=== PATIENT | female | born 1970 | race Caucasian/White ===

== ENCOUNTER → 2019-12-13 15:22 | Outpatient (CLI) | payer OTHER, SELFPAY ==
--- NOTE | ~2019-12-13 | MM_ITS ---
EXAMINATION: MM screening sweetie BI w jacinta HISTORY: Screening mammogram TECHNIQUE: Craniocaudal and mediolateral oblique 3-D tomosynthesis images were obtained and synthetic 2-D images were generated. CAD analysis was submitted and interpreted. COMPARISON: 11/22/2017, 11/16/2016, 11/11/2015 bilateral digital screening mammogram examinations BREAST PARENCHYMAL COMPOSITION: There are scattered areas of fibroglandular density. FINDINGS: There is no evidence of suspicious mass, calcification, or architectural distortion to sugg est malignancy in either breast. There has been no suspicious interval change. IMPRESSION: 1. No mammographic evidence of malignancy. 2. Recommend routine screening mammography in one year. BI-RADS Category 1: Negative Reviewed, dictated and finalized at location A.
== END ==
PROVIDERS: Visit Provider Nurse Practitioner
DX: Z12.31 Encounter for screening mammogram for malignant neoplasm of breast (principal)
CPT/HCPCS: 77063; 77067

== ENCOUNTER → 2020-06-24 14:44 | Outpatient (REF) | payer OTHER, SELFPAY | LOC: ANHLAB 14:44 | PROVIDERS: Visit Provider Surgery Plastic and Reconstructive Surgery | DX: C43.9 Malignant melanoma of skin, unspecified (principal) | CPT/HCPCS: 88305; 88342 ==

== ENCOUNTER → 2021-01-08 15:47 | Outpatient (CLI) | payer BC, SELFPAY ==
--- NOTE | ~2021-01-08 | MM_ITS ---
EXAMINATION: MM screening sweetie BI w jacinta HISTORY: Screening TECHNIQUE: Craniocaudal and mediolateral oblique 3-D tomosynthesis images were obtained and synthetic 2-D images were generated. CAD analysis was submitted and interpreted. COMPARISON: No prior mammogram is available for comparison at this institution. BREAST PARENCHYMAL COMPOSITION: There are scattered areas of fibroglandular density. FINDINGS: There is no evidence of suspicious mass, calcification, or architectural distortion to sugg est malignancy in either breast. There has been no suspicious interval change. IMPRESSION: 1. No mammographic evidence of malignancy. 2. Recommend routine screening mammography in one year. BI-RADS Category 1: Negative Reviewed, dictated and finalized at location A.
== END ==
PROVIDERS: PCP Family Medicine; Visit Provider Nurse Practitioner
DX: Z12.31 Encounter for screening mammogram for malignant neoplasm of breast (principal)
CPT/HCPCS: 77063; 77067

== ENCOUNTER → 2022-02-27 15:07 | Outpatient (CLI) | payer OTHER, BC, SELFPAY ==
--- NOTE | ~2022-02-27 | MM_ITS ---
EXAMINATION: MM screening sweetie BI w jacinta HISTORY: Screening TECHNIQUE: Craniocaudal and mediolateral oblique 3-D tomosynthesis images were obtained and synthetic 2-D images were generated. CAD analysis was submitted and interpreted. COMPARISON: Comparison to multiple prior studies sequentially, with oldest reviewed study dated 11/02. BREAST PARENCHYMAL COMPOSITION: There are scattered areas of fibroglandular density. FINDINGS: There is a focal asymmetry in the periareolar aspect of the right breast slightly lateral t o the nipple on CC view. The left breast is stable without evidence for malignancy. IMPRESSION: 1. Focal right breast asymmetry. 2. Additional mammographic views and possible breast ultrasound are recommended. BI-RADS Category 0: Incomplete: Needs additional imaging evaluation. Reviewed, dictated and finalized at location A. IMPRESSION: 1. Focal right breast asymmetry. 2. Additional mammographic views and possible breast ultrasound are recommended . BI-RADS Category 0: Incomplete: Needs additional imaging evaluation.
== END ==
PROVIDERS: PCP Obstetrics & Gynecology Gynecology; Visit Provider Nurse Practitioner
DX: Z12.31 Encounter for screening mammogram for malignant neoplasm of breast (principal); R92.8 Other abnormal and inconclusive findings on diagnostic imaging of breast
CPT/HCPCS: 77063; 77067

== ENCOUNTER → 2022-03-18 08:10 | Outpatient (CLI) | payer OTHER, SELFPAY ==
--- NOTE | ~2022-03-18 | MMUS_ITS ---
EXAMINATION: MM diagnostic sweetie RT w jacinta, US breast RT complete HISTORY: Focal asymmetry in periareolar aspect of right breast slightly lateral to the nipple on scre ening CC view of 02/2022 TECHNIQUE: Additional 3-D tomosynthesis images of the right breast were performed and synthetic 2-D i mages were generated. CAD analysis was submitted and interpreted. High resolution complete right kat st ultrasound examination including all 4 quadrants and subareolar area was performed. COMPARISON: 02/27/2022 bilateral screening mammogram FINDINGS: MAMMOGRAPHIC FINDINGS: No suspicious mass or architectural distortion, malignant calcification, skin thickening or retractio n is evident. No suspicious finding is noted at the area in question at the lateral periareolar area on these supplemental views. ULTRASOUND: 6:00 2 cm from nipple: Parallel circumscribed 3.8 x 3.2 x 4.4 mm hypoechoic lesion with possible fatt y hilum, with through transmission, without internal vascularity, consistent with benign process 6:00 1 cm from nipple: Parallel circumscribed 4.4 x 9.4 mm hypoechoic solid lesion without internal v ascularity or posterior shadowing; six-month targeted ultrasound follow-up is recommended 6:00 1 cm from nipple: 2.4 x 3.6 mm circumscribed parallel hypoechoic lesion without shadowing 11:00 subareolar area: 3.5 x 4.6 mm septated cyst, benign 12:00 periareolar area: 2 adjacent cysts measuring up to 3.9 and 3 mm. IMPRESSION: 1. Probable benign finding at 6:00 1 cm from nipple 2. Six-month targeted breast ultrasound at 6:00 1 cm from nipple is recommended BI-RADS category 3, probably benign findings. Reviewed, dictated and finalized at location A. L DRAFTSMAN IMPRESSION: 1. Probable benign finding at 6:00 1 cm from nipple 2. Six-month targeted breast ultrasound at 6:00 1 cm from nipple is recommended BI-RADS category 3, probably benign findings.
== END ==
PROVIDERS: Visit Provider Nurse Practitioner
DX: R92.8 Other abnormal and inconclusive findings on diagnostic imaging of breast (principal)
CPT/HCPCS: 76641; 77061; 77065; G0279

== ENCOUNTER → 2022-08-24 14:48 | Outpatient (CLI) | payer OTHER, SELFPAY ==
--- NOTE | ~2022-08-24 | US_ITS ---
EXAMINATION: US breast RT limited HISTORY: Six-month follow-up for probably benign right breast masses TECHNIQUE: Limited right breast ultrasound was performed. FINDINGS: There is a 5 mm cyst at the 6:00 location 1 cm from the nipple. A 9 mm x 4 mm oval, circums cribed, parallel, hypoechoic mass with no posterior features or internal vascularity at the 6:00 loca tion, 1 cm from the nipple is stable. IMPRESSION: Stable, probably benign right breast masses. Follow-up targeted right breast ultrasound six months is recommended. BI-RADS category 3, probably benign findings. Reviewed, dictated and finalized at location A. IMPRESSION: Stable, probably benign right breast masses. Follow-up targeted right breast ul trasound six months is recommended. BI-RADS category 3, probably benign findings.
== END ==
PROVIDERS: PCP Obstetrics & Gynecology Gynecology; Visit Provider Obstetrics & Gynecology Gynecology
DX: R92.8 Other abnormal and inconclusive findings on diagnostic imaging of breast (principal)
CPT/HCPCS: 76642

== ENCOUNTER → 2023-03-03 14:49 | Outpatient (CLI) | payer OTHER, SELFPAY ==
--- NOTE | ~2023-03-03 | MMUS_ITS ---
EXAMINATION: MM diagnostic sweetie BI w jacinta, US breast RT limited HISTORY: Follow-up right breast mass TECHNIQUE: Additional 3-D tomosynthesis images of the right breast were performed and synthetic 2-D i mages were generated. CAD analysis was submitted and interpreted. High resolution Limited right breas t ultrasound was performed. COMPARISON: Comparison to multiple prior studies sequentially, with oldest reviewed study dated 11/16. BREAST PARENCHYMAL COMPOSITION: Breast composed of scattered areas of fibroglandular density FINDINGS: MAMMOGRAPHIC FINDINGS: The breasts are stable. No new masses, calcifications or architectural distortion in either breast to suggest malignancy. ULTRASOUND: Limited right breast ultrasound: At 6:00, 1 cm from the nipple there is a 5 mm cyst. At 6:00, 1 cm fr om the nipple there is an irregular shaped partially cystic lobulated mass measuring 7 x 7 x 4 mm whi ch has changed in morphology compared with prior examination. There is mixed posterior attenuation. N o internal vascularity. IMPRESSION: 1. Complex irregular lobulated hypoechoic 7 mm right breast mass at 6:00, 1 cm from the nipple which appears to have changed morphology compared with prior examination. 2. Ultrasound-guided right breast biopsy recommended. BI-RADS category 4, suspicious findings. Reviewed, dictated and finalized at location A. HEAD PUNCHER IMPRESSION: 1. Complex irregular lobulated hypoechoic 7 mm right breast mass at 6:00, 1 cm from the nipple which appears to have changed morphology compared with prior ex amination. 2. Ultrasound-guided right breast biopsy recommended. BI-RADS category 4, suspicious findings.
== END ==
PROVIDERS: PCP Obstetrics & Gynecology Gynecology; Visit Provider Nurse Practitioner
DX: N63.15 Unspecified lump in the right breast, overlapping quadrants (principal)
CPT/HCPCS: 76642; 77062; 77066; G0279

== ENCOUNTER 2023-03-24 09:43 | Outpatient (CLI) | payer OTHER, SELFPAY ==
--- NOTE | ~2023-03-24 | MMUS_ITS ---
EXAMINATION: US GUIDED NEEDLE BIOPSY DATE: 03/24/2023 12:08 INDUSTRIAL MILLWRIGHT INDICATION: Complex irregular hypoechoic 7 mm right breast mass at 6:00 1 cm from nipple was reported on 03/03/2023 and limited right breast ultrasound examination TECHNIQUE AND FINDINGS: The risks and potential benefits of the procedure were discussed with the patient, and written inform ed consent was obtained. Timeout procedure was performed. After sterile preparation of the breast, 1% lidocaine was utilized for local anesthesia. A 12 G spring-loaded biopsy gun needle was advanced to the edge of the region of interest from a medi al approach utilizing sonographic guidance. A total of three tissue core samples were obtained throu gh the lesion. The lesion was no longer detectable sonographically after ultrasound biopsy, suggestin g the lesion may have been cystic. An Inrad tissue marker clip was then placed at the biopsy site. Hemostasis was achieved. A sterile ba ndage was applied. The patient tolerated procedure well and there was no evidence of immediate complication. The patien t was given verbal instructions prior to departing from the department. A two view mammogram was perf ormed to document tissue marker clip placement. The tissue samples were submitted to surgical patholo gy for histologic analysis. IMPRESSION: Ultrasound guided biopsy of right 6:00 breast mass with biopsy marker placement. Please refer to path ology report for histologic analysis. Reviewed, dictated and finalized at Location A. Reviewed, dictated and finalized at location A. STRIAL MILLWRIGHT IMPRESSION: Ultrasound guided biopsy of right 6:00 breast mass with biopsy marker placement . Please refer to pathology report for histologic analysis.
== END 2023-03-24 09:44 | disposition home or self-care (01) ==
PROVIDERS: PCP Internal Medicine; Referring Provider Surgery; Visit Provider Physician Assistant Surgical
DX: R92.8 Other abnormal and inconclusive findings on diagnostic imaging of breast (principal)
CPT/HCPCS: 19083; 88305; A4648

== ENCOUNTER 2024-03-24 10:39 | Outpatient (CLI) | payer BC, SELFPAY ==
--- NOTE | ~2024-03-24 | MM_ITS ---
EXAMINATION: MM screening sweetie BI w jacinta HISTORY: Screening mammogram TECHNIQUE: Craniocaudal and mediolateral oblique 3-D tomosynthesis images were obtained and synthetic 2-D images were generated. CAD analysis was submitted and interpreted. COMPARISON: Serial breast imaging dating back to 02/27/2022 bilateral screening mammogram BREAST PARENCHYMAL COMPOSITION: There are scattered areas of fibroglandular density. FINDINGS: There is no evidence of suspicious mass, calcification, or architectural distortion to sugg est malignancy in either breast. There has been no suspicious interval change. IMPRESSION: 1. No mammographic evidence of malignancy. 2. Recommend routine screening mammography in one year. BI-RADS Category 1: Negative Reviewed, dictated and finalized at location A. PRESS TENDER
== END 2024-03-24 10:40 | disposition home or self-care (01) ==
PROVIDERS: PCP Internal Medicine; Visit Provider Nurse Practitioner
DX: Z12.31 Encounter for screening mammogram for malignant neoplasm of breast (principal)
CPT/HCPCS: 77063; 77067

== ENCOUNTER 2024-11-17 10:20 | Outpatient (CLI) | payer BC, SELFPAY ==
--- NOTE | ~2024-11-17 | DEXA_ITS ---
Bone Density Report Name: PATI OCUCH Age: 54 Sex: Female Ethnicity: White Date of : 1970 Indication: postmenopausal; screening for osteoporosis; height loss; cancer; Referring Provider: LENNY CRANE Study: Bone densitometry was performed. Exam Date: November 17, 2024 Accession number: [id number] Bone Density: Region BMD T-score Z-score Classification AP Spine(L1-L4) 0.939 -1.0 0.1 Normal Femoral Neck (Left) 0.639 -1.9 -0.8 Osteopenia Total Hip (Left) 0.926 -0.1 0.6 Normal Femoral Neck (Right) 0.716 -1.2 -0.1 Osteopenia Total Hip (Right) 0.923 -0.2 0.6 Normal Total Hip Mean 0.924 -0.2 0.6 Normal World Health Organization criteria for BMD impression classify patients as: Normal (T-score at or above -1.0), Osteopenia (T-score between -1.0 and -2.5), or Osteoporosis (T-score at or below -2.5). 10-year Fracture Risk(1): Major Osteoporotic Fracture 7.3% Hip Fracture 0.7% Reported Risk Factors: [place] (), Neck BMD=0.639, BMI=30.3 (1) FRAX(R) Version 3.08. Fracture probability calculated for an untreated patient. Fracture probability may be lower if the patient has received treatment. Clinical Information Provided by Patient: Has used the following medications: HRT (i.e. estrogen/hormone therapy), Vitamin D, Calcium Has the following medical conditions: Cancer Patient maximum height was 64 Menopause Age: 51 Drinks caffeinated beverages Onset of menses at age 12 Number of children 2 Impression: The patient has low bone mass, based on the Left Femoral Neck T-score. The patient has an estimated ten-year risk of hip fracture of 0.7% and an estimated ten-year risk of major fracture of 7.3%, based on the WHO FRAX algorithm. Discussion: BONE DENSITY IS LOW AT ONE OR MORE SKELETAL SITES. This patient's lowest T-score is low at one or more skeletal sites. It meets the World Health Organization's (WHO) criteria for ?low bone mass? (T-score between -1.0 and -2.5). The patient's 10-year risk of fracture as calculated by FRAX is less than the threshold where pharmacological therapy is recommended by the National Osteoporosis Foundation (NOF). However, all treatment decisions require clinical judgment and consideration of individual patient factors, including patient preferences, comorbidities, previous drug use, risk factors not captured in the FRAX model (e.g., frailty, falls, vitamin D deficiency, increased bone turnover, interval significant decline in bone density) and possible under or overestimation of fracture risk by FRAX. The patient should follow a healthful lifestyle (good nutrition with adequate calcium and vitamin D, and appropriate weight-bearing exercise). Follow-Up: Consider repeating this study in 2 to 3 years to reassess this patient's status, or sooner if there is some new clinical indication. Reported by: AKOSUA on 11/17/2024 10:41:00 AM. Reviewed, dictated and finalized at location A.
== END 2024-11-17 10:21 | disposition home or self-care (01) ==
LOC: MICIMG 10:21
PROVIDERS: PCP Obstetrics & Gynecology Gynecology; Visit Provider Obstetrics & Gynecology Gynecology
DX: Z13.820 Encounter for screening for osteoporosis (principal); M85.852 Other specified disorders of bone density and structure, left thigh; M85.851 Other specified disorders of bone density and structure, right thigh
CPT/HCPCS: 77080

== ENCOUNTER 2025-03-28 14:56 | Outpatient (CLI) | payer BC, SELFPAY ==
--- NOTE | ~2025-03-28 | MM_ITS ---
EXAMINATION: MM screening sweetie BI w jacinta HISTORY: Screening. TECHNIQUE: Craniocaudal and mediolateral oblique 3-D tomosynthesis images were obtained and synthetic 2-D images were generated. CAD analysis was submitted and interpreted. COMPARISON: 2023, 2022, and 2021. BREAST PARENCHYMAL COMPOSITION: Not Dense: There are scattered areas of fibroglandular FINDINGS: No suspicious masses are seen. There are no suspicious calcifications. No unexplained architectural distortion is seen. There are no skin or nipple abnormalities identified. There is no adenopathy seen on the images submitted. IMPRESSION: No mammographic evidence to suggest malignancy is seen. The patient may return to screening mammography as per ACR guidelines. BI-RADS 1 - Negative. Reviewed, dictated and finalized at location B. OLOGIST ASSISTANT
== END 2025-03-28 14:57 | disposition home or self-care (01) ==
LOC: MICIMG 14:58
PROVIDERS: PCP Obstetrics & Gynecology Gynecology; Visit Provider Obstetrics & Gynecology Gynecology
DX: Z12.31 Encounter for screening mammogram for malignant neoplasm of breast (principal)
CPT/HCPCS: 77063; 77067